=== PATIENT | male | born 1950 ===

== ENCOUNTER 2018-04-13 14:02 | Emergency (ER) | payer MEDICARE ==
[2018-04-13 14:28] VITALS: BP 129/82
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
--- NOTE | 2018-04-13 15:21 | RAD ---
HISTORY: injury right knee COMPARISONS: None VIEWS: 4, Frontal, lateral, axial, and oblique views of the right knee FINDINGS: BONE DENSITY: Normal. BONES: There is no displaced fracture. JOINTS: There is no arthropathy. There is no suprapatellar joint effusion or lipohemarthrosis. ALIGNMENT: There is no dislocation. SOFT TISSUES: There is soft tissue swelling medially. OTHER FINDINGS: None. IMPRESSION: SOFT TISSUE SWELLING. NO ACUTE OSSEOUS INJURY. IF SYMPTOMS PERSIST, RECOMMEND REPEAT IMAGING.
== END 2018-04-13 15:24 | disposition home or self-care (01) ==
LOC: UCCORT 14:02
DX: S80.01XA Contusion of right knee, initial encounter (principal); W22.09XA Striking against other stationary object, initial encounter; Y93.55 Activity, bike riding; Y92.9 Unspecified place or not applicable; Z88.1 Allergy status to other antibiotic agents; E78.5 Hyperlipidemia, unspecified
CPT/HCPCS: 99211; G0463